=== PATIENT | male | born 1995 | race Caucasian/White ===

== ENCOUNTER 2017-04-08 07:14 | Outpatient (CLI) ==
--- NOTE | 2017-04-08 08:30 | US ---
EXAM: Ultrasound abdomen limited. HISTORY: Nausea and vomiting. COMPARISON: 03/24/2013. TECHNIQUE: Abdominal, real time with image documentation: limited (eg, single organ, quadrant, fol low-up) FINDINGS: The liver demonstrates increased parenchymal echogenicity without intrahepatic biliary di latation. Portal venous flow is normal in direction. The gallbladder is without shadowing stones, wall thickening or pericholecystic fluid. Common duct measures approximately 0.2 cm. Visualized po rtions of the pancreas are unremarkable. IMPRESSION: Fatty infiltration of the liver.
== END 2017-04-08 07:15 | disposition home or self-care (01) ==
LOC: RAD 07:14
PROVIDERS: ATTEND Physician Assistant
DX: R11.2 Nausea with vomiting, unspecified (principal)